=== PATIENT | female | born 1950 | race Native Hawaiian/Other Pacific Islander ===

== ENCOUNTER 2016-08-14 14:35 | Outpatient (CLI) | payer OTHER | END 2016-08-14 19:16 | disposition home or self-care (01) | LOC: MAMMO 14:35 | DX: Z12.31 Encounter for screening mammogram for malignant neoplasm of breast (principal) | CPT/HCPCS: G0202-TC ==

== ENCOUNTER 2017-08-16 12:31 | Outpatient (CLI) | payer OTHER | END 2017-08-16 23:01 | disposition home or self-care (01) | LOC: MAMMO 12:31 | DX: Z12.31 Encounter for screening mammogram for malignant neoplasm of breast (principal) ==

== ENCOUNTER 2020-12-23 13:45 | Outpatient (CLI) | payer OTHER | END 2020-12-23 22:39 | disposition home or self-care (01) | LOC: MAMMO 13:45 | PROVIDERS: ATTEND Obstetrics & Gynecology | DX: Z12.31 Encounter for screening mammogram for malignant neoplasm of breast (principal) ==

== ENCOUNTER 2021-11-20 15:25 | Outpatient (CLI) | payer OTHER | END 2021-11-20 19:53 | disposition home or self-care (01) | LOC: LAB 15:25 | PROVIDERS: ATTEND Obstetrics & Gynecology | DX: Z79.899 Other long term (current) drug therapy (principal); G40.909 Epilepsy, unspecified, not intractable, without status epilepticus | CPT/HCPCS: 80185 ==

== ENCOUNTER 2022-06-05 13:50 | Outpatient (CLI) | payer OTHER | END 2022-06-05 20:37 | disposition home or self-care (01) | LOC: LAB 13:50 | PROVIDERS: ATTEND Obstetrics & Gynecology | DX: G40.89 Other seizures (principal) | CPT/HCPCS: 80185 ==

== ENCOUNTER 2022-07-05 13:31 | Outpatient (CLI) | payer OTHER | END 2022-07-05 20:44 | disposition home or self-care (01) | LOC: LAB 13:31 | PROVIDERS: ATTEND Obstetrics & Gynecology | DX: G40.89 Other seizures (principal) | CPT/HCPCS: 80185 ==